=== PATIENT | female | born 1985 | race Caucasian/White ===

== ENCOUNTER 2022-09-07 01:00 | Day surgery (SDC) | payer OTHER, SELFPAY ==
[2022-09-05 08:38] VITALS: BMI 25.7
--- NOTE | 2022-09-05 08:44 | PC.NURSE ---
Report to the Outpatient Waiting Room, entrance under the green pavilion located off [facility], at time 1030 on date 09/07/22. Planned Procedure Time: 1230. Time changes happen often and if your time is changed the preop area will call you the afternoon before. - You and your visitor will be asked to self-screen and do not enter if you have any COVID symptoms. - Only one visitor is requested with a max of two and NO children visitors are allowed at this time. - The patient visitor may be requested to leave or wait in car when not with patient due to distancing restrictions. - A mask is optional within the hospital. Patients may have clear liquids (water, carbonated beverages, clear teas, apple juice) until 3 hours prior to surgery with a maximum of 20 ounces. - No food from midnight until time of surgery Take the following medications with a SIP of water the morning of surgery: CYMBALTA, CLONAZEPAM IF NEEDED Medications to discontinue per physician: N/A Date to take last dose: N/A Please no make-up, nail sinhala, hairspray, perfume, deodorant, or body powder the day of surgery. No jewelry (including any body piercings) or valuables the day of surgery, leave them at home. Please take a shower or bath the night before, or the morning of, surgery with an antibacterial soap. Wear comfortable, loose fitting clothing. - Jewelry must be removed prior to entering the operating room. Rings and piercings that are not removed may be cut off. - The hospital will not accept responsibility for valuables. - Please leave all valuables, including medications, at home the day of surgery. If you are going home after surgery, a licensed compactor driver must drive you home. - NO public transportation without another adult if you receive anesthesia. - We recommend that an adult stay with you for 24 hours following discharge. - We also recommend that you do not drive, make important decision, drink alcoholic beverages, or take any drugs that were not prescribed by your health care provider for at least 24 hours after your discharge time. Follow any additional instructions given to you from your surgeon. If you or anyone in your household have experienced Covid symptoms in the past week, please notify your surgeon or the nurse liaison at the phone number below for possible testing. Telephone instructions given to PT - ENRICO STEPHENS and asked if any additional questions and then verbalized understanding. Patient advised to call surgeon office or pre surgery nurse liaison [phone] if any additional questions.
--- NOTE | 2022-09-06 10:51 | PM.IMHP ---
H&P: HPI History of Present Illness Date/Time: 09/06/22 10:51 Chief Complaint: cosmetic deformity nasal bone fracture nasal congestion nasal septal fracture Narrative: planned surgical procedure Review of Systems Review of Systems: All systems reviewed & are unremarkable except as noted in HPI and below PMFSH Past Medical History Medical History Contact dermatitis Contact dermatitis and eczema due to plant Costochondritis LPRD (laryngopharyngeal reflux disease) Surgical History Surgical History H/O vaginal surgery Labiaplasty 2001 History of appendectomy History of rhinoplasty Family History Family History Mother Asthma Uterine cancer Grandparent Carcinoma of colon Lung cancer Depression Diabetes mellitus Heart disease Cerebrovascular accident Social History Social History (Updated 09/04/22 @ 15:14 by JURGEN Simons) Social History: Smoking status: Never smoker Second hand tobacco smoke exposure: No Alcohol intake: current Alcohol use details: 1 EVERY 2 MONTHS Substance use: current Substance use type: marijuana Lack of Transportation: No Lack of Food: Never True Current Housing: I Have Housing Concerned About Future Housing: No Difficulty Paying Gas/Electric Bills: No Difficulty Paying for Meds: No Currently Unemployed: No Education: Master's Degree or Higher Difficulty w/ Childcare or Family Care: No Living arrangements: with family Gender identity (if verbalized by the patient): Female Sexual Orientation (if Verbalized by the Patient): Straight or Heterosexual Spiritual care concerns: No Meds Home Medications and Allergies Home Medications Medication Instructions Recorded Confirmed Type clonazepam 1 mg tablet 1 mg PO DAILY PRN Pain 09/04/22 09/05/22 History duloxetine 20 mg capsule,delayed 20 mg PO DAILY 09/04/22 09/05/22 History release pantoprazole 40 mg tablet,delayed 40 mg PO BID 09/04/22 09/05/22 History release Allergies Allergy/AdvReac Type Severity Reaction Status Date / Time morphine Allergy Unknown Itching Verified 09/05/22 08:35 Sulfa (Sulfonamide Allergy Unknown Rash Verified 09/05/22 08:35 Antibiotics) Exam Narrative: left convex right concave nasal bone septal deviation Assessment and Plan Assessment and plan (1) Fracture of nasal bone: Code(s): S02.2XXA - Fracture of nasal bones, initial encounter for closed fracture Status: Acute Assessment and Plan: inferior turbinate outfracture closed reduction nasal septum closed reduction nasal bones risks were discussed including blindness change in vision perforation failure to resolve symptoms worsening of symptoms bleeding pain change in cosmesis which is not desirable patient voiced understanding and agreed. (2) Hypertrophy of both inferior nasal turbinates: Code(s): J34.3 - Hypertrophy of nasal turbinates Status: Acute (3) Nasal septal deviation: Code(s): J34.2 - Deviated nasal septum Status: Acute (4) Nasal congestion: Code(s): R09.81 - Nasal congestion Status: Acute (5) Nasal obstruction: Code(s): J34.89 - Other specified disorders of nose and nasal sinuses Status: Acute
[2022-09-07] VITALS (8 sets, daily range): BP systolic 110–133; BP diastolic 67–93; PULSE 57–92; RESP 14–19; TEMP 36.2–36.7; O2SAT 99–100
--- NOTE | 2022-09-07 07:15 | WPDHPUPDATE1 ---
History and Physical Update Update Date/Time: 09/07/22 07:15 History and Physical has been reviewed, including an updated exam of the patient. There are NO changes in the patient's condition. Risks, benefits, and alternatives have been discussed and questions answered. Patient agrees to proceed with procedure.
[2022-09-07] MEDS: ACETAMINOPHEN 500 MG TABLET 1000 MG PO (10:54)
[2022-09-07] MEDS: LACTATED RINGERS 1,000 ML 30 ML IV CONT (11:05)
--- NOTE | 2022-09-07 11:35 | WPDANESEPPF ---
Anes - Initial Pre Proc Eval Procedure: Operation Date: 09/07/22 12:30 Proposed Procedures p Closed Reduction Nasal fracture - Antoine Hughes MD s Bilateral Inferior Turbinectomy Without Fracture - Antoine Hughes MD Date/Time: 09/07/22 11:35 Surgeon: Antoine Hughes MD Pre Op Diagnosis: nasal fracture and nasal obstruction Patient Data Age: 37 Gender: F Height: 1.63 m Weight: 67.8 kg Last Vital Signs Temp 36.7 C 09/07/22 10:39 Pulse 92 09/07/22 10:39 Resp 14 09/07/22 10:39 BP 113/73 09/07/22 10:39 Pulse Ox 100 09/07/22 10:39 O2 Del Method Room Air 09/07/22 10:39 Allergies Allergy/AdvReac Type Severity Reaction Status Date / Time Sulfa (Sulfonamide Allergy Intermediate Rash Verified 09/07/22 10:50 Antibiotics) morphine Allergy Mild Itching Verified 09/07/22 10:50 Home Medications Medication Instructions Recorded Confirmed Type clonazepam 1 mg tablet 1 mg PO DAILY PRN Pain 09/04/22 09/05/22 History duloxetine 20 mg capsule,delayed 20 mg PO DAILY 09/04/22 09/07/22 History release pantoprazole 40 mg tablet,delayed 40 mg PO BID 09/04/22 09/05/22 History release Patient hx anesthesia problems: none Family hx anesthesia problems: none Results Review: All pre-operative results and documents have been reviewed as part of the pre-operative evaluation. 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 Costochondritis LPRD (laryngopharyngeal reflux disease) Surgical History Surgical History H/O vaginal surgery Labiaplasty 2001 History of appendectomy History of rhinoplasty Family History Family History Mother Asthma Uterine cancer Grandparent Carcinoma of colon Lung cancer Depression Diabetes mellitus Heart disease Cerebrovascular accident Social History Social History Social History: Smoking status: Never smoker Second hand tobacco smoke exposure: No Alcohol intake: current Alcohol use details: 1 EVERY 2 MONTHS Substance use: current Substance use type: marijuana Lack of Transportation: No Lack of Food: Never True Current Housing: I Have Housing Concerned About Future Housing: No Difficulty Paying Gas/Electric Bills: No Difficulty Paying for Meds: No Currently Unemployed: No Education: Master's Degree or Higher Difficulty w/ Childcare or Family Care: No Living arrangements: with family Gender identity (if verbalized by the patient): Female Sexual Orientation (if Verbalized by the Patient): Straight or Heterosexual Spiritual care concerns: No Anes - Eval Final PreProcedure Day of Procedure 09/07/22 11:35 Patient weight: normal Heart: regular rate and rhythm Lungs: clear to auscultation Airway: Mallampati scale class II Neurological: alert and oriented Last oral intake: >/= 8 hours ASA classification: II Emergent: no Anesthetic plan: proceed Anesthesia type and monitoring: general ETT and standard monitoring Results Review: All pre-operative results and documents have been reviewed as part of the pre-operative evaluation. Informed Consent: The patient's anesthetic plan and its attendant risks and benefits were discussed with the patient/family/POA. Questions were solicited and answers provided to the satisfaction of the patient/family/POA.
[2022-09-07] MEDS: ceFAZolin 2 GM/D5W 50 ML 2 GM/50 ML BAG IVPB (11:41)
[2022-09-07] MEDS: OXYMETAZOLINE HCL 0.05% NAS 15 ML BTL (*BKC) 1 SPRAY NASAL (11:51)
[2022-09-07] MEDS: SCOPOLAMINE 1.5 MG PATCH TRANSDERM (12:20)
--- NOTE | 2022-09-07 12:29 | W.PM.PROC2 ---
Procedure Note - Detailed Date of Procedure 09/07/22 Pre-op Diagnosis nasal fracture and nasal obstruction, turbinate hypertrophy septal fracture septal deviation Post-op Diagnosis Same Procedure Performed closed reduction septal fracture closed reduction nasal bone fracture turbinate outfracture Surgeon Antoine Hughes MD Anesthesia General Indications see above Findings rightward deviated septum turbinate hypertrophy left nasal bone convex to the right concavity corrected following procedure Description of Procedure patient identified consent verified. Patient brought operating room. Time-out performed. General anesthesia induced endotracheal tube secured. Patient prepped draped position 2nd time-out performed. Headlight speculum Esmeralda elevator utilized to outfracture the turbinates the Afrin-soaked pledgets were then placed allowed to sit for 5 minutes then removed. Septum fractured over to the left much more patent airway at this point. The distance was measured on the Esmeralda to the eye to ensure no orbital damage occurred. The right nasal bone was then outfractured will push and on the left. The nose was straighter the procedure. Bleeding was controlled with suction in the intermittent application of Afrin-soaked pledgets. Minimal at the end the procedure. Gelfoam was placed under the right nasal bone to stent it. Brown tape was then placed followed by Aquaplast splint over the nasal bones followed by more brown tape. This marked in the procedure. I performed all dictated portions. Total blood loss probably 5 cc. There were no complications. Care the patient given Anesthesiology. Patient taken to PACU. Estimated Blood Loss 5 Drains No Packing Yes ( Gelfoam) Pathology None sent Complications No immediate complications Condition Stable Disposition PACU
[2022-09-07] MEDS: fentaNYL CITRATE INJ (*CRX) 100 MCG/2 ML VIAL 25 MCG IV PUSH ×4 (12:30→12:40)
[2022-09-07] MEDS: oxyCODONE HCL (*CRX) 5 MG TAB IR PO (13:26)
== END 2022-09-07 13:55 | disposition home or self-care (01) ==
PROVIDERS: PCP Family Medicine Sports Medicine; Visit Provider Otolaryngology
PROC: 0NSBXZZ Reposition Nasal Bone, External Approach (ICD-10-PCS; CPT 21315; principal; 2022-09-07 12:30)
DX: S02.2XXA Fracture of nasal bones, initial encounter for closed fracture (principal); J34.3 Hypertrophy of nasal turbinates; J34.2 Deviated nasal septum; R09.81 Nasal congestion; J34.89 Other specified disorders of nose and nasal sinuses; F12.90 Cannabis use, unspecified, uncomplicated; W22.8XXA Striking against or struck by other objects, initial encounter
CPT/HCPCS: 21320; 30140; A9270; J0330; J0690; J1100; J2250; J2405; J2704; J3010; J7120

== ENCOUNTER 2025-05-10 11:35 | Outpatient (CLI) | payer OTHER, SELFPAY | END 2025-05-10 11:36 | disposition home or self-care (01) | LOC: GOSHIMG 11:36 | PROVIDERS: PCP Internal Medicine; Visit Provider Chiropractor | DX: M79.671 Pain in right foot (principal) | CPT/HCPCS: 73630 ==